=== PATIENT | male | born 1995 | race Hispanic/Latino ===

== ENCOUNTER 2022-11-07 19:15 | Emergency (ER) | payer MEDICAID, OTHER ==
[~2022-11-07] VITALS: Ht 162.6 cm; Wt 83.0 kg
[2022-11-07] MEDS ORDERED: FLUCONAZOLE 100 MG TAB PO ONE (21:00)
[2022-11-07 21:14] LABS: ADD UA MICROSCOPIC YES; APPEARANCE,URINE CLEAR (CLEAR); BILIRUBIN,URINE NEGATIVE (NEGATIVE); COLOR,URINE COLORLESS (YELLOW); GLUCOSE, URINE (UA) >=1000 mg/dL (NEGATIVE); KETONES,URINE NEGATIVE (NEGATIVE); LEUKOCYTE ESTERASE ,URINE 75 Leu/uL (NEGATIVE); NITRATE,URINE NEGATIVE (NEGATIVE); OCCULT BLOOD,URINE NEGATIVE (NEGATIVE); PROTEIN,URINE NEGATIVE (NEGATIVE); UROBILINOGEN,URINE 0.2 mg/dL (0.2-1.0)
[2022-11-07 21:16] LABS: BACTERIA,URINE RARE /HPF (None Seen); MUCUS,URINE RARE LPF (None Seen); SQUAMOUS EPITHELIAL CELL,UR RARE /HPF (0-2)
[2022-11-07 21:47] LABS: BASOPHILS # (AUTO) 0.04 K/uL (0.00-0.20); BASOPHILS % (AUTO) 0.5 % (0.0-5.0); EOSINOPHILS # (AUTO) 0.07 K/uL (0.00-0.70); EOSINOPHILS % (AUTO) 0.9 % (0.0-8.0); HEMATOCRIT 40.1 % (42-54); IMMATURE GRANULOCYTE ABSOLUTE 0.03 K/uL (0-1); LYMPHOCYTES % (AUTO) 37.3 % (21.0-51.0); MEAN CORPUSCULAR HEMOGLOBIN 31.4 pg (27.0-33.0); MEAN CORPUSCULAR HGB CONC 35.2 g/dL (32.0-36.0); MEAN CORPUSCULAR VOLUME 89.3 fL (79-99); MONOCYTES # (AUTO) 0.5 K/uL (0.1-1.0); MONOCYTES % (AUTO) 6.1 % (3.0-13.0); NEUTROPHILS # (AUTO) 4.4 K/uL (1.8-7.7); NEUTROPHILS % (AUTO) 54.8 % (40.0-77.0); PLATELET COUNT (AUTO) 315 K/uL (130-400); RED BLOOD CELL COUNT(AUTO) 4.49 MIL/uL (4.50-6.20); RED CELL DISTRIBUTION WIDTH 12.5 % (11.0-15.5)
[2022-11-07 21:59] LABS: CREATININE 0.8 mg/dL (0.5-1.5); POTASSIUM 3.4 mmol/L (3.5-5.1)
[2022-11-07 22:03] LABS: ALBUMIN 3.5 g/dL (3.5-5.0); BILIRUBIN,TOTAL 0.5 mg/dL (0.2-1.0); TOTAL PROTEIN, SERUM 7.9 g/dL (6.0-8.3)
[2022-11-07] MEDS ORDERED: PHEN-847 PO (22:04)
[2022-11-07] MEDS ORDERED: SULF1TAB42 PO (22:04)
[2022-11-07 22:12] VITALS: BP 128/78; PULSE 92; RESP 16; O2SAT 99
[2022-11-07] MEDS ORDERED: POTASSIUM BICARB/CIT AC 25 MEQ TABLET.EFF PO ONE (22:30)
== END 2022-11-07 22:16 | disposition home or self-care (01) ==
LOC: EDH 19:15
DX: N39.0 Urinary tract infection, site not specified (principal); E78.00 Pure hypercholesterolemia, unspecified; E11.65 Type 2 diabetes mellitus with hyperglycemia; Z88.0 Allergy status to penicillin; Z88.6 Allergy status to analgesic agent
CPT/HCPCS: 36415; 80053; 81001; 85025; 87088

== ENCOUNTER 2023-09-17 18:30 | Emergency (ER) | payer OTHER ==
[~2023-09-17] VITALS: Ht 162.6 cm; Wt 88.5 kg
[~2023-09-17 18:30] MED LIST: OMEG1CAP31 PO; PHEN-847 PO; SULF1TAB42 PO
[2023-09-17 18:36] VITALS: BP 135/91; PULSE 114; RESP 20
[2023-09-17] MEDS ORDERED: MUPI15CR12 TP (20:01)
[2023-09-17] MEDS ORDERED: NEOM1OIN19 TP (20:01)
[2023-09-17] MEDS ORDERED: NYST15CR39 TP (20:01)
== END 2023-09-17 20:37 | disposition home or self-care (01) ==
LOC: EDH 18:30
DX: L03.012 Cellulitis of left finger (principal); N48.1 Balanitis; I10 Essential (primary) hypertension; E78.00 Pure hypercholesterolemia, unspecified; Z79.899 Other long term (current) drug therapy; Z88.0 Allergy status to penicillin; Z88.8 Allergy status to other drugs, medicaments and biological substances

== ENCOUNTER 2023-09-26 18:50 | Inpatient (IN) | payer OTHER ==
[~2023-09-26] VITALS: Ht 162.6 cm; Wt 85.9 kg
[~2023-09-26 18:50] MED LIST changes: +MUPI15CR12 TP; +NEOM1OIN19 TP; +NYST15CR39 TP
[2023-09-26 20:02] LABS: BASOPHILS # (AUTO) 0.04 K/uL (0.00-0.20); BASOPHILS % (AUTO) 0.4 % (0.0-5.0); EOSINOPHILS # (AUTO) 0.09 K/uL (0.00-0.70); EOSINOPHILS % (AUTO) 0.9 % (0.0-8.0); IMMATURE GRANULOCYTE ABSOLUTE 0.02 K/uL (0-1); LYMPHOCYTES # (AUTO) 3.5 K/uL (1.0-4.8); LYMPHOCYTES % (AUTO) 36.5 % (21.0-51.0); MEAN CORPUSCULAR VOLUME 82.7 fL (79-99); MONOCYTES # (AUTO) 0.5 K/uL (0.1-1.0); MONOCYTES % (AUTO) 5.3 % (3.0-13.0); NEUTROPHILS # (AUTO) 5.4 K/uL (1.8-7.7); NEUTROPHILS % (AUTO) 56.7 % (40.0-77.0); PLATELET COUNT (AUTO) 378 K/uL (130-400); RED CELL DISTRIBUTION WIDTH 11.9 % (11.0-15.5); WHITE BLOOD COUNT (AUTO) 9.6 K/uL (4.8-10.8)
[2023-09-26] MEDS: 0.9%NACL 1000ML 1,000 ML IV ONE ×2 (20:09→21:18)
[2023-09-26 20:27] LABS: POTASSIUM 3.9 mmol/L (3.5-5.1)
[2023-09-26 20:58] LABS: ALBUMIN 3.5 g/dL (3.5-5.0); BILIRUBIN,TOTAL 0.4 mg/dL (0.2-1.0); CREATININE 0.8 mg/dL (0.5-1.3); TOTAL PROTEIN, SERUM 7.7 g/dL (6.0-8.3)
[2023-09-26] MEDS ORDERED: INSULIN HUMULIN R 100 UNIT/ML 3ML IV ONE (21:00)
[2023-09-26 21:04] LABS: ABG BASE EXCESS -8.6 mmol/L (-2.0-3.0); ABG HCO3 15.5 mmol/L (21.0-28.0); ABG OXYGEN SATURATION 95.8 % (95.0-99.0); ABG PCO2 29 mmHg (35-48); ABG PH 7.347 (7.350-7.450); CARBON MONOXIDE 0.3; HHb 4.2; PO2, ARTERIAL BG 81.3 mmHg (83.0-108.0); VENT MODE, BG RA (ROOM AIR)
[2023-09-26 21:17] LABS: HEMATOCRIT 41.7 % (42-54); MEAN CORPUSCULAR HEMOGLOBIN 33.3 pg (27.0-33.0); MEAN CORPUSCULAR HGB CONC 39.1 g/dL (32.0-36.0)
[2023-09-26 21:57] LABS: BAND NEUTROPHILS % (MANUAL) 11 % (0-2); LYMPHOCYTES % (MANUAL) 23 % (22-44); MONOCYTES % (MANUAL) 2 % (2-9); REACTIVE LYMPHOCYTES 2 % (0-0); SEGMENTED NEUTROPHILS % 62 % (40-70); TOTAL CELLS COUNTED 100
[2023-09-26 21:58] LABS: MAN.DIFF COMMENT-IMPRESSION MANUAL DIFFERENTIAL
[2023-09-26 22:00] LABS: PLATELET MORPHOLOGY COMMENT LARGE PLTS PRESENT
[2023-09-26] MEDS ORDERED: MANNITOL 20% 250ML IV.SOLN IV SCH (22:00)
[2023-09-26] MEDS ORDERED: POTASSIUM CHLORIDE 10MEQ/100ML 100 ML IV PRN (22:00)
[2023-09-26] MEDS ORDERED: MAGNESIUM 2GM PREMIX 50ML 50 ML IV SCH (22:00)
[2023-09-26] MEDS ORDERED: MANNITOL 20% 500 ML IV.SOLN IV SCH ×2 (22:30→23:45)
[2023-09-26] MEDS: INSULIN REGULAR, HUMAN 3ML 100 UNIT in 0.9%NACL 100ML 100 ML IV SCH (23:25)
[2023-09-26] MEDS: D5W-1/2 NS/20MEQ KCL 1,000 ML IV SCH (23:25)
[2023-09-26] MEDS: 0.9%NACL 1000ML 1,000 ML IV SCH (23:26)
[2023-09-27] VITALS (64 sets, daily range): BP systolic 108–149; BP diastolic 54–97; PULSE 64–107; RESP 5–44; O2SAT 94
[2023-09-27] MEDS ORDERED: ONDANSETRON 4MG INJ IV PRN
[2023-09-27] MEDS ORDERED: POTASSIUM CHLORIDE 10MEQ/100ML 100 ML IV PRN
[2023-09-27] MEDS ORDERED: INSULIN REGULAR, HUMAN 3ML 100 UNIT in 0.9%NACL 100ML 100 ML IV SCH
[2023-09-27] MEDS ORDERED: 0.9%NACL 1000ML 1,000 ML IV SCH
[2023-09-27] MEDS ORDERED: METF-446 PO (00:11)
[2023-09-27 00:53] LABS: AMPHET/METH SCREEN,URINE NEGATIVE (NEGATIVE); APPEARANCE,URINE CLEAR (CLEAR); BARBITURATE SCREEN, URINE NEGATIVE (NEGATIVE); BENZODIAZEPINES SCREEN,URINE NEGATIVE (NEGATIVE); BILIRUBIN,URINE NEGATIVE (NEGATIVE); CANNABINOID SCREEN,URINE NEGATIVE (NEGATIVE); COCAINE SCREEN,URINE NEGATIVE (NEGATIVE); COLOR,URINE COLORLESS (YELLOW); GLUCOSE, URINE (UA) >=1000 mg/dL (NEGATIVE); KETONES,URINE 100 mg/dL (NEGATIVE); LEUKOCYTE ESTERASE ,URINE 75 Leu/uL (NEGATIVE); NITRATE,URINE NEGATIVE (NEGATIVE); OCCULT BLOOD,URINE NEGATIVE (NEGATIVE); OPIATE SCREEN,URINE NEGATIVE (NEGATIVE); PHENCYCLIDINE SCREEN,URINE NEGATIVE (NEGATIVE); PROTEIN,URINE NEGATIVE (NEGATIVE); UROBILINOGEN,URINE 0.2 mg/dL (0.2-1.0)
[2023-09-27 00:55] LABS: ADD UA MICROSCOPIC YES
[2023-09-27 00:58] LABS: MUCUS,URINE RARE LPF (None Seen); SQUAMOUS EPITHELIAL CELL,UR RARE /HPF (0-2)
[2023-09-27 02:04] LABS: RAPID GROUP A STREP negative (NEGATIVE)
[2023-09-27 02:04] LABS: POTASSIUM 3.9 mmol/L (3.5-5.1)
[2023-09-27 02:09] LABS: SARS-CoV-2, RNA, NAAT NEGATIVE SARS CoV-2 (NEGATIVE)
[2023-09-27 02:14] LABS: INFLUENZA TYPE A Negative For Type A (NEGATIVE); INFLUENZA TYPE B Negative For Type B (NEGATIVE)
[2023-09-27 03:03] LABS: CREATININE 0.9 mg/dL (0.5-1.3)
[2023-09-27] MEDS: D5W-1/2 NS/20MEQ KCL 1,000 ML IV SCH (04:55)
[2023-09-27 08:28] LABS: POTASSIUM 3.5 mmol/L (3.5-5.1); THYROID STIMULATING HORMONE 5.47 uIU/mL (0.36-3.74)
[2023-09-27] MEDS: ENOXAPARIN SODIUM 30 MG/0.3 ML SQ SCH (08:42)
[2023-09-27] MEDS: FAMOTIDINE 20MG VIAL IV SCH (08:42)
[2023-09-27 09:27] LABS: BASOPHILS # (AUTO) 0.03 K/uL (0.00-0.20); BASOPHILS % (AUTO) 0.4 % (0.0-5.0); EOSINOPHILS # (AUTO) 0.08 K/uL (0.00-0.70); EOSINOPHILS % (AUTO) 0.9 % (0.0-8.0); HEMATOCRIT 39.4 % (42-54); IMMATURE GRANULOCYTE ABSOLUTE 0.04 K/uL (0-1); LYMPHOCYTES # (AUTO) 3.5 K/uL (1.0-4.8); LYMPHOCYTES % (AUTO) 41.6 % (21.0-51.0); MONOCYTES # (AUTO) 0.5 K/uL (0.1-1.0); MONOCYTES % (AUTO) 5.6 % (3.0-13.0); NEUTROPHILS # (AUTO) 4.3 K/uL (1.8-7.7); PLATELET COUNT (AUTO) 336 K/uL (130-400); RED BLOOD CELL COUNT(AUTO) 4.46 MIL/uL (4.50-6.20); RED CELL DISTRIBUTION WIDTH 12.2 % (11.0-15.5); WHITE BLOOD COUNT (AUTO) 8.4 K/uL (4.8-10.8)
[2023-09-27 09:33] LABS: CREATININE 0.7 mg/dL (0.5-1.3)
[2023-09-27 10:04] LABS: MEAN CORPUSCULAR HEMOGLOBIN 38.3 pg (27.0-33.0)
[2023-09-27 10:18] LABS: BASOPHILS % (MANUAL) 2 % (0-2); EOSINOPHILS % (MANUAL) 4 % (1-6); LYMPHOCYTES % (MANUAL) 43 % (22-44); MAN.DIFF COMMENT-IMPRESSION MANUAL DIFFERENTIAL; MONOCYTES % (MANUAL) 6 % (2-9); SEGMENTED NEUTROPHILS % 45 % (40-70); TOTAL CELLS COUNTED 100
[2023-09-27 10:19] LABS: PLATELET MORPHOLOGY COMMENT ADEQUATE
[2023-09-27 10:24] LABS: MEAN CORPUSCULAR VOLUME 86.8 fL (79-99)
[2023-09-27 10:25] LABS: MEAN CORPUSCULAR HGB CONC 37.5 g/dL (32.0-36.0)
[2023-09-27] MEDS: MAGNESIUM 2GM PREMIX 50ML 50 ML IV SCH (13:37)
[2023-09-27 14:06] LABS: CARBON DIOXIDE 17 mmol/L (21-32); CHLORIDE 97 mmol/L (101-111); GLOMERULAR FILTR. RATE CALC 142 mL/min (>90); GLUCOSE,RANDOM 223 mg/dL (70-105); POTASSIUM 3.5 mmol/L (3.5-5.1); SODIUM SERUM 129 mmol/L (136-145); UREA NITROGEN, BLOOD 7 mg/dL (7-18)
[2023-09-27 14:20] LABS: TRIGLYCERIDES 3725 mg/dL (30-200)
[2023-09-27 14:33] LABS: ABG BASE EXCESS -7.4 mmol/L (-2.0-3.0); ABG HCO3 16.6 mmol/L (21.0-28.0); ABG OXYGEN SATURATION 96.6 % (95.0-99.0); ABG PCO2 30 mmHg (35-48); ABG PH 7.362 (7.350-7.450); DEVICE COMMENT LR LEO RN; PO2, ARTERIAL BG 88.5 mmHg (83.0-108.0); VENT MODE, BG RA (ROOM AIR)
[2023-09-27 14:46] LABS: ALBUMIN 2.9 g/dL (3.5-5.0); AMYLASE 42 U/L (25-115); BILIRUBIN,DIRECT < 0.1 mg/dL (0.0-0.3); BILIRUBIN,TOTAL 0.6 mg/dL (0.2-1.0); CREATININE 0.5 mg/dL (0.5-1.3); TOTAL PROTEIN, SERUM 7.1 g/dL (6.0-8.3)
[2023-09-27 14:51] LABS: HEMATOCRIT 37.1 % (42-54); MEAN CORPUSCULAR HGB CONC 39.9 g/dL (32.0-36.0); MEAN CORPUSCULAR VOLUME 85.3 fL (79-99); RED BLOOD CELL COUNT(AUTO) 4.35 MIL/uL (4.50-6.20); RED CELL DISTRIBUTION WIDTH 11.9 % (11.0-15.5); WHITE BLOOD COUNT (AUTO) 6.7 K/uL (4.8-10.8)
[2023-09-27 14:57] LABS: ASPARTATE AMINOTRANSFERASE 24 U/L (10-37)
[2023-09-27] MEDS ORDERED: MAGNESIUM 2GM PREMIX 50ML 50 ML IV SCH (15:00)
[2023-09-27 15:06] LABS: ALANINE AMINOTRANSFERASE 20 U/L (12-78)
[2023-09-27] MEDS ORDERED: GLUCAGON 1MG KIT 1 MG ML IM PRN ×2 (17:00→19:30)
[2023-09-27] MEDS ORDERED: DEXTROSE 50%-WATER 50 ML DISP.SYRIN IV PRN ×2 (17:00→19:30)
[2023-09-27] MEDS: POTASSIUM CHLORIDE 20MEQ/100ML 100 ML IV ONE (18:45)
[2023-09-27] MEDS: DEXTROSE 10%-WATER 1,000 ML IV PRN (18:46)
[2023-09-27] MEDS ORDERED: POTASSIUM CHLORIDE 20MEQ/100ML 100 ML IV PRN (19:00)
[2023-09-27] MEDS ORDERED: POTASSIUM CHLORIDE 10% ELIXIR 20 MEQ/15 ML UDCUP PO PRN (19:00)
[2023-09-27] MEDS ORDERED: MAGNESIUM 2GM PREMIX 50ML 50 ML IV PRN (19:30)
[2023-09-27 19:41] LABS: POTASSIUM 3.9 mmol/L (3.5-5.1)
[2023-09-27 20:10] LABS: CREATININE 0.7 mg/dL (0.5-1.3)
[2023-09-27] MEDS: ATORVASTATIN 20 MG TABLET PO SCH (20:22)
[2023-09-27] MEDS: FISH OIL 1000 MG/CAP PO SCH (20:22)
[2023-09-27] MEDS: FENOFIBRATE NANOCRYSTALLIZED 145 MG TAB PO SCH (20:22)
[2023-09-27] MEDS: LEVOFLOXACIN 500 MG/D5W 100 ML 100 ML IV SCH (20:23)
[2023-09-27] MEDS: NYSTATIN-TRIAMCINOLONE CREAM 15 GM TP SCH (20:23)
[2023-09-27] MEDS: INSULIN HUMULIN R 100 UNIT/ML 3ML SQ SCH (21:00)
[2023-09-27] MEDS: FLUCONAZOLE 200 MG/NS 100 ML IV SCH (21:34)
[2023-09-27] MEDS: INSULIN REGULAR, HUMAN 3ML 100 UNIT in 0.9%NACL 100ML 99 ML IV SCH (22:03)
[2023-09-27] MEDS: ACETAMINOPHEN 325 MG TAB PO PRN (23:50)
[2023-09-28] VITALS (26 sets, daily range): BP systolic 105–173; BP diastolic 52–101; PULSE 56–118; RESP 14–35; O2SAT 94–97
[2023-09-28 03:57] LABS: HEMATOCRIT 39.3 % (42-54); MEAN CORPUSCULAR HEMOGLOBIN 34.9 pg (27.0-33.0); MEAN CORPUSCULAR HGB CONC 40.7 g/dL (32.0-36.0); MEAN CORPUSCULAR VOLUME 85.8 fL (79-99); RED BLOOD CELL COUNT(AUTO) 4.58 MIL/uL (4.50-6.20); WHITE BLOOD COUNT (AUTO) 10.1 K/uL (4.8-10.8)
[2023-09-28 05:56] LABS: ALBUMIN 2.7 g/dL (3.5-5.0); BILIRUBIN,TOTAL 0.5 mg/dL (0.2-1.0); CREATININE 0.6 mg/dL (0.5-1.3); MAGNESIUM 1.9 mg/dL (1.80-2.40); POTASSIUM 3.6 mmol/L (3.5-5.1); TOTAL PROTEIN, SERUM 7.3 g/dL (6.0-8.3)
[2023-09-28] MEDS: KCL 20 MEQ ERTAB PO PRN (06:37)
[2023-09-28] MEDS: MULTIVITAMIN WITH MINERALS TABLET PO SCH (09:11)
[2023-09-28] MEDS: THIAMINE HCL 100 MG/ML 2ML VIAL IVP SCH (09:11)
[2023-09-28] MEDS: INSULIN GLARGINE 100 UNITS/ML 10 ML VIAL SQ SCH (10:12)
[2023-09-28 11:27] LABS: HEMATOCRIT 39.8 % (42-54); MEAN CORPUSCULAR HEMOGLOBIN 33.3 pg (27.0-33.0); MEAN CORPUSCULAR HGB CONC 39.7 g/dL (32.0-36.0); PLATELET COUNT (AUTO) 329 K/uL (130-400); RED BLOOD CELL COUNT(AUTO) 4.74 MIL/uL (4.50-6.20); RED CELL DISTRIBUTION WIDTH 12.2 % (11.0-15.5); WHITE BLOOD COUNT (AUTO) 7.9 K/uL (4.8-10.8)
[2023-09-28 11:40] LABS: POTASSIUM 3.9 mmol/L (3.5-5.1)
[2023-09-28 12:18] LABS: CREATININE 0.3 mg/dL (0.5-1.3)
[2023-09-28 12:37] LABS: LYMPHOCYTES % (MANUAL) 38 % (22-44); MAN.DIFF COMMENT-IMPRESSION MANUAL DIFFERENTIAL; MONOCYTES % (MANUAL) 5 % (2-9); SEGMENTED NEUTROPHILS % 57 % (40-70); TOTAL CELLS COUNTED 100
[2023-09-28 12:38] LABS: PLATELET MORPHOLOGY COMMENT ADEQUATE
[2023-09-28 15:25] LABS: POTASSIUM 3.6 mmol/L (3.5-5.1)
[2023-09-28 16:11] LABS: CREATININE 0.3 mg/dL (0.5-1.3)
[2023-09-28 19:16] LABS: POTASSIUM 3.9 mmol/L (3.5-5.1)
[2023-09-28 19:49] LABS: CREATININE 0.7 mg/dL (0.5-1.3)
[2023-09-29] VITALS (25 sets, daily range): BP systolic 90–140; BP diastolic 50–93; PULSE 60–105; RESP 10–32; O2SAT 92–96
[2023-09-29 00:14] LABS: CREATININE 0.6 mg/dL (0.5-1.3); POTASSIUM 3.5 mmol/L (3.5-5.1)
[2023-09-29 04:35] LABS: CREATININE 0.5 mg/dL (0.5-1.3); POTASSIUM 4.6 mmol/L (3.5-5.1)
[2023-09-29 07:42] LABS: BASOPHILS # (AUTO) 0.05 K/uL (0.00-0.20); BASOPHILS % (AUTO) 0.7 % (0.0-5.0); EOSINOPHILS # (AUTO) 0.23 K/uL (0.00-0.70); EOSINOPHILS % (AUTO) 3.1 % (0.0-8.0); HEMATOCRIT 40.5 % (42-54); IMMATURE GRANULOCYTE ABSOLUTE 0.02 K/uL (0-1); LYMPHOCYTES # (AUTO) 3.6 K/uL (1.0-4.8); LYMPHOCYTES % (AUTO) 47.7 % (21.0-51.0); MEAN CORPUSCULAR HEMOGLOBIN 32.6 pg (27.0-33.0); MEAN CORPUSCULAR VOLUME 85.6 fL (79-99); MONOCYTES # (AUTO) 0.6 K/uL (0.1-1.0); MONOCYTES % (AUTO) 7.3 % (3.0-13.0); NEUTROPHILS # (AUTO) 3.1 K/uL (1.8-7.7); NEUTROPHILS % (AUTO) 40.9 % (40.0-77.0); PLATELET COUNT (AUTO) 313 K/uL (130-400); RED BLOOD CELL COUNT(AUTO) 4.73 MIL/uL (4.50-6.20); RED CELL DISTRIBUTION WIDTH 12.2 % (11.0-15.5); WHITE BLOOD COUNT (AUTO) 7.5 K/uL (4.8-10.8)
[2023-09-29] MEDS: 0.9%NACL 1000ML 1,000 ML IV SCH (07:43)
[2023-09-29 07:50] LABS: CREATININE 0.5 mg/dL (0.5-1.3)
[2023-09-29 12:36] LABS: CREATININE 0.6 mg/dL (0.5-1.3); MAGNESIUM 1.8 mg/dL (1.80-2.40); POTASSIUM 3.5 mmol/L (3.5-5.1)
[2023-09-29 14:15] LABS: HEMOGLOBIN A1C 12.4 % (4.0-6.0)
[2023-09-29 16:39] LABS: CREATININE 0.6 mg/dL (0.5-1.3); POTASSIUM 3.3 mmol/L (3.5-5.1)
[2023-09-29 20:26] LABS: CREATININE 0.9 mg/dL (0.5-1.3)
[2023-09-30] VITALS (25 sets, daily range): BP systolic 102–144; BP diastolic 57–93; PULSE 60–102; RESP 12–182; O2SAT 95–96
[2023-09-30 01:06] LABS: CREATININE 0.7 mg/dL (0.5-1.3); POTASSIUM 3.5 mmol/L (3.5-5.1)
[2023-09-30 04:33] LABS: BASOPHILS # (AUTO) 0.07 K/uL (0.00-0.20); BASOPHILS % (AUTO) 0.9 % (0.0-5.0); EOSINOPHILS # (AUTO) 0.26 K/uL (0.00-0.70); EOSINOPHILS % (AUTO) 3.5 % (0.0-8.0); HEMATOCRIT 39.7 % (42-54); IMMATURE GRANULOCYTE ABSOLUTE 0.03 K/uL (0-1); LYMPHOCYTES % (AUTO) 52.7 % (21.0-51.0); MEAN CORPUSCULAR HEMOGLOBIN 31.6 pg (27.0-33.0); MEAN CORPUSCULAR HGB CONC 36.3 g/dL (32.0-36.0); MEAN CORPUSCULAR VOLUME 87.1 fL (79-99); MONOCYTES # (AUTO) 0.6 K/uL (0.1-1.0); MONOCYTES % (AUTO) 8.5 % (3.0-13.0); NEUTROPHILS # (AUTO) 2.6 K/uL (1.8-7.7); PLATELET COUNT (AUTO) 306 K/uL (130-400); RED BLOOD CELL COUNT(AUTO) 4.56 MIL/uL (4.50-6.20); RED CELL DISTRIBUTION WIDTH 12.5 % (11.0-15.5); WHITE BLOOD COUNT (AUTO) 7.5 K/uL (4.8-10.8)
[2023-09-30 04:51] LABS: CREATININE 0.7 mg/dL (0.5-1.3); POTASSIUM 3.4 mmol/L (3.5-5.1)
[2023-09-30 08:23] LABS: POTASSIUM 3.4 mmol/L (3.5-5.1)
[2023-09-30] MEDS: INSULIN REGULAR 100 UNIT in 0.9%NACL 100ML IV SCH (10:31)
[2023-09-30 16:51] LABS: CREATININE 0.7 mg/dL (0.5-1.3); POTASSIUM 3.7 mmol/L (3.5-5.1)
[2023-09-30] MEDS: LEVOFLOXACIN 500 MG/D5W 100 ML 100 ML IV SCH (19:37)
[2023-09-30] MEDS ORDERED: LEVOFLOXACIN 500 MG TABLET PO SCH (20:00)
[2023-09-30 22:15] LABS: CREATININE 0.8 mg/dL (0.5-1.3)
[2023-10-01] VITALS (38 sets, daily range): BP systolic 97–139; BP diastolic 58–90; PULSE 50–94; RESP 11–33; O2SAT 94–96
[2023-10-01 03:53] LABS: BASOPHILS # (AUTO) 0.06 K/uL (0.00-0.20); BASOPHILS % (AUTO) 0.7 % (0.0-5.0); EOSINOPHILS # (AUTO) 0.32 K/uL (0.00-0.70); EOSINOPHILS % (AUTO) 3.6 % (0.0-8.0); HEMATOCRIT 42.1 % (42-54); IMMATURE GRANULOCYTE ABSOLUTE 0.04 K/uL (0-1); LYMPHOCYTES # (AUTO) 4.6 K/uL (1.0-4.8); LYMPHOCYTES % (AUTO) 51.3 % (21.0-51.0); MEAN CORPUSCULAR HEMOGLOBIN 31.3 pg (27.0-33.0); MEAN CORPUSCULAR HGB CONC 35.9 g/dL (32.0-36.0); MEAN CORPUSCULAR VOLUME 87.2 fL (79-99); MONOCYTES # (AUTO) 0.7 K/uL (0.1-1.0); MONOCYTES % (AUTO) 7.9 % (3.0-13.0); NEUTROPHILS # (AUTO) 3.3 K/uL (1.8-7.7); NEUTROPHILS % (AUTO) 36.1 % (40.0-77.0); PLATELET COUNT (AUTO) 329 K/uL (130-400); RED BLOOD CELL COUNT(AUTO) 4.83 MIL/uL (4.50-6.20); RED CELL DISTRIBUTION WIDTH 12.5 % (11.0-15.5)
[2023-10-01 04:16] LABS: ALBUMIN 3.1 g/dL (3.5-5.0); BILIRUBIN,TOTAL 0.5 mg/dL (0.2-1.0); CREATININE 0.8 mg/dL (0.5-1.3); POTASSIUM 3.6 mmol/L (3.5-5.1); TOTAL PROTEIN, SERUM 7.5 g/dL (6.0-8.3)
[2023-10-01 10:02] LABS: CREATININE 0.7 mg/dL (0.5-1.3); POTASSIUM 3.4 mmol/L (3.5-5.1)
[2023-10-01] MEDS: INSULIN HUMULIN R 100 UNIT/ML 3ML SQ SCH (12:26)
[2023-10-01 15:38] LABS: CREATININE 0.8 mg/dL (0.5-1.3); POTASSIUM 4.3 mmol/L (3.5-5.1)
[2023-10-01] MEDS: LEVOFLOXACIN 500 MG TABLET PO SCH (20:10)
[2023-10-01] MEDS: NIACIN 500 MG SRTAB PO SCH (20:10)
[2023-10-01 22:06] LABS: CREATININE 0.8 mg/dL (0.5-1.3); POTASSIUM 4.5 mmol/L (3.5-5.1)
[2023-10-02 00:06] VITALS: BP 136/89; PULSE 98; RESP 18
[2023-10-02 04:06] VITALS: BP 121/78; PULSE 89; RESP 18
[2023-10-02 06:04] LABS: BASOPHILS # (AUTO) 0.05 K/uL (0.00-0.20); BASOPHILS % (AUTO) 0.6 % (0.0-5.0); EOSINOPHILS # (AUTO) 0.19 K/uL (0.00-0.70); EOSINOPHILS % (AUTO) 2.3 % (0.0-8.0); HEMATOCRIT 42.7 % (42-54); IMMATURE GRANULOCYTE ABSOLUTE 0.04 K/uL (0-1); LYMPHOCYTES % (AUTO) 48.7 % (21.0-51.0); MEAN CORPUSCULAR HEMOGLOBIN 30.8 pg (27.0-33.0); MEAN CORPUSCULAR HGB CONC 34.7 g/dL (32.0-36.0); MEAN CORPUSCULAR VOLUME 88.8 fL (79-99); MONOCYTES # (AUTO) 0.7 K/uL (0.1-1.0); MONOCYTES % (AUTO) 8.7 % (3.0-13.0); NEUTROPHILS # (AUTO) 3.2 K/uL (1.8-7.7); NEUTROPHILS % (AUTO) 39.2 % (40.0-77.0); PLATELET COUNT (AUTO) 291 K/uL (130-400); RED BLOOD CELL COUNT(AUTO) 4.81 MIL/uL (4.50-6.20); RED CELL DISTRIBUTION WIDTH 12.2 % (11.0-15.5); WHITE BLOOD COUNT (AUTO) 8.2 K/uL (4.8-10.8)
[2023-10-02] MEDS: INSULIN HUMULIN R 100 UNIT/ML 3ML SQ SCH (06:11)
[2023-10-02 06:46] LABS: ALBUMIN 3.2 g/dL (3.5-5.0); BILIRUBIN,TOTAL 0.7 mg/dL (0.2-1.0); CREATININE 0.8 mg/dL (0.5-1.3); POTASSIUM 3.7 mmol/L (3.5-5.1); TOTAL PROTEIN, SERUM 7.5 g/dL (6.0-8.3)
[2023-10-02 07:55] VITALS: BP 96/46; PULSE 83; RESP 17
[2023-10-02 08:00] VITALS: O2SAT 97
[2023-10-02 11:43] VITALS: BP_SYST 146; BP_SYST 92; BP_DIAS 56; BP_DIAS 97; PULSE 86; RESP 16; RESP 17
[2023-10-02] MEDS ORDERED: Niacin PO (12:36)
[2023-10-02] MEDS ORDERED: LEVO-70 PO (12:36)
[2023-10-02] MEDS ORDERED: METF-444 PO (12:36)
[2023-10-02] MEDS ORDERED: ATOR20TA65 PO (12:36)
[2023-10-02] MEDS ORDERED: GLIM4TAB36 PO (12:36)
[2023-10-02] MEDS ORDERED: FENO145T PO (12:36)
== END 2023-10-02 14:20 | disposition home or self-care (01) | DRG 871 ==
LOC: EDH 18:50 → EDHIP 18:51 → EEVIPCON 18:51 → 2CV 09-27 03:20 → 2BH 09-27 19:58 → 4DH 10-01 16:45
PROVIDERS: ADMIT Internal Medicine; ATTEND Internal Medicine
DX: A41.2 Sepsis due to unspecified staphylococcus (principal); E11.10 Type 2 diabetes mellitus with ketoacidosis without coma; E87.1 Hypo-osmolality and hyponatremia; E78.1 Pure hyperglyceridemia; F19.10 Other psychoactive substance abuse, uncomplicated; E78.00 Pure hypercholesterolemia, unspecified; E83.42 Hypomagnesemia; E86.0 Dehydration; R65.20 Severe sepsis without septic shock; E11.65 Type 2 diabetes mellitus with hyperglycemia; Z91.199 Patient's noncompliance with other medical treatment and regimen due to unspecified reason
CPT/HCPCS: 36415; 36600; 71045; 73130; 80048; 80053; 80061; 80076; 80305; 81001; 82010; 82150; 82306; 82435; 82803; 82947; 82948; 83036; 83605; 83690; 83735; 84132; 84295; 84443; 84478; 85018; 85025; 85027; 87070; 87076; 87086; 87186; 87635; 87804; 87880; 88112; 88305; 96375; G0378; J1450; J1650; J1815; J1956; J3411; J3475; J3480; J3490; J7030